=== PATIENT | male | born 1985 | race Caucasian/White ===

== ENCOUNTER → 2021-07-18 09:50 | Outpatient (CLI) | payer OTHER, SELFPAY ==
[2021-07-18 23:19] LABS: SARS-CoV-2 RNA PCR Negative
== END ==
PROVIDERS: PCP Internal Medicine; Visit Provider Internal Medicine
DX: R68.89 Other general symptoms and signs (principal); Z20.822 Contact with and (suspected) exposure to COVID-19
CPT/HCPCS: C9803; U0003; U0005

== ENCOUNTER 2024-09-30 13:50 | Emergency (ER) | payer OTHER, SELFPAY ==
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
[2024-09-30 14:04] VITALS: BP 132/73; PULSE 63; RESP 18; TEMP 36.7; O2SAT 100
== END 2024-09-30 14:39 | disposition home or self-care (01) ==
PROVIDERS: Emergency Provider Nurse Practitioner Family
DX: Z04.1 Encounter for examination and observation following transport accident (principal); M54.6 Pain in thoracic spine; M54.50 Low back pain, unspecified; M79.602 Pain in left arm
CPT/HCPCS: 72072; 72100; 73090; 99214; G0463